=== PATIENT | female | born 1975 | race African-American/Black ===

== ENCOUNTER 2019-10-28 03:43 | Emergency (ER) | payer MEDICARE, MEDICAID ==
[~2019-10-28] VITALS: Ht 170.2 cm; Wt 64.8 kg
[2019-10-28] MEDS ORDERED: ACETAMINOPHEN 325MG TABLET PO PRN (05:00)
[2019-10-28 05:12] LABS: CLARITY URINE CLOUDY (CLEAR); COLOR URINE YELLOW (YELLOW); KETONES URINE TRACE (NEGATIVE); LEUKOCYTE ESTERASE URINE NEGATIVE (NEGATIVE); NITRITE URINE NEGATIVE (NEGATIVE); OCCULT BLOOD URINE 3+ (NEGATIVE); PROTEIN URINE 1+ (NEGATIVE); SPECIFIC GRAVITY URINE 1.028 (1.005-1.030)
[2019-10-28 05:15] LABS: BASOPHILS % 0.6 % (0.0-2.0); EOSINOPHILS % 0.3 % (0.0-5.0); HEMATOCRIT. 37.2 % (36.0-48.0); HEMOGLOBIN. 12.4 g/dL (12.0-16.0); LYMPHOCYTES % 51.2 % (20.0-50.0); MEAN CORPUSCULAR HEMOGLOBIN 30.7 pg (28.0-32.0); MEAN CORPUSCULAR VOLUME 91.9 fL (81.0-99.0); MEAN PLATELET VOLUME 8.9 fl (7.4-10.4); MONOCYTES % 7.8 % (2.0-8.0); NEUTROPHILS % 40.1 % (40.0-76.0); PLATELET 229 x1000/uL (130-400); RED BLOOD CELL COUNT 4.05 mill/uL (4.2-5.4); RED CELL DISTRIBUTION WIDTH 13.8 % (11.6-14.6)
[2019-10-28 05:20] LABS: CHLORIDE 108 mEq/L (98-107)
[2019-10-28 05:32] LABS: B-HCG QUANTITATIVE < 1 mIU/mL (<3)
[2019-10-28 08:25] VITALS: BP 103/59
== END 2019-10-28 08:26 | disposition home or self-care (01) ==
LOC: ER 03:43
DX: R10.9 Unspecified abdominal pain (principal); Z98.51 Tubal ligation status; Z90.10 Acquired absence of unspecified breast and nipple; Z85.9 Personal history of malignant neoplasm, unspecified; Z88.8 Allergy status to other drugs, medicaments and biological substances; Z88.1 Allergy status to other antibiotic agents; Z88.6 Allergy status to analgesic agent
CPT/HCPCS: 36415; 76830; 76856; 81003; 84702; 86850; 86900; 99284

== ENCOUNTER 2022-05-29 17:03 | Emergency (ER) | payer MEDICARE, MEDICAID ==
[~2022-05-29] VITALS: Ht 167.6 cm; Wt 77.0 kg
[2022-05-29] MEDS ORDERED: IBUPROFEN 600MG TABLET PO STA (17:29)
[2022-05-29] MEDS ORDERED: AMOX1TAB16 PO (18:35)
[2022-05-29] MEDS ORDERED: NAPR-681 PO (18:35)
[2022-05-29 19:05] VITALS: BP 127/66
[2022-05-29 19:44] LABS: MONOTEST NEGATIVE (NEGATIVE)
== END 2022-05-29 19:10 | disposition home or self-care (01) ==
LOC: ER 17:03
DX: J03.90 Acute tonsillitis, unspecified (principal); R07.89 Other chest pain
CPT/HCPCS: 86308; 87070; 87430; 99283